=== PATIENT | female | born 1975 | race Caucasian/White ===

== ENCOUNTER 2017-05-12 00:07 | Emergency (ER) | payer OTHER ==
[~2017-05-12] VITALS: Ht 160 cm; Wt 65.8 kg
[2017-05-12] MEDS ORDERED: HERBAL SUPPLEMENTS (00:14)
[2017-05-12] MEDS ORDERED: AMOXICILLIN875 MG PO ×2 (00:27→00:33)
== END 2017-05-12 08:06 | disposition home or self-care (01) ==
LOC: ER 00:07
DX: H72.92 Unspecified perforation of tympanic membrane, left ear (principal)